=== PATIENT | female | born 1990 | race Caucasian/White ===

== ENCOUNTER 2023-11-26 01:18 | Emergency (ER) | payer MEDICAID ==
[~2023-11-26] VITALS: Ht 165.1 cm; Wt 68.0 kg
[2023-11-26 01:46] VITALS: TEMP 98.4
[2023-11-26] MEDS ORDERED: oxyCODONE/APAP (5/325 MG) 1 UDTAB TABLET ONE (02:55)
[2023-11-26] MEDS ORDERED: ACETAMINOPHEN ES 500 MG TABLET ONE (02:55)
[2023-11-26] MEDS ORDERED: ONDANSETRON 4 MG TAB.RAPDIS ONE (02:55)
[2023-11-26] MEDS: ACETAMINOPHEN ES 500 MG TABLET PO ONE (03:00)
[2023-11-26] MEDS: oxyCODONE/APAP (5/325 MG) 1 UDTAB TABLET PO ONE (03:00)
[2023-11-26] MEDS: ONDANSETRON 4 MG TAB.RAPDIS SL ONE (03:02)
[2023-11-26] MEDS ORDERED: OXYC-128 PO (03:14)
[2023-11-26] MEDS ORDERED: ONDA4TAB11 PO (03:14)
[2023-11-26 03:22] VITALS: BP 118/79; O2SAT 100
== END 2023-11-26 03:23 | disposition left against medical advice (07) ==
LOC: ER 01:18
DX: R51.9 Headache, unspecified (principal); M54.2 Cervicalgia; Z60.2 Problems related to living alone; V43.62XA Car passenger injured in collision with other type car in traffic accident, initial encounter; Y93.89 Activity, other specified; Y92.89 Other specified places as the place of occurrence of the external cause; Y99.8 Other external cause status
CPT/HCPCS: Q0162